=== PATIENT | female | born 1995 | race Two or more races ===

== ENCOUNTER → 2020-03-27 | Outpatient (CLI) | payer SELFPAY ==
[2020-03-30 05:07] LABS: Chlamydia By Nucleic Acid AMP Negative (Negative)
[2020-03-30 07:46] LABS: Gonococcus By Nucleic Acid AMP Negative (Negative)
[2020-03-30 12:07] LABS: Age Gdln ACOG Testing 21-29 (.)
[2020-03-30 15:28] LABS: HPV Reflexed? NOT INDICATED
== END | disposition home or self-care (01) ==
LOC: LABSPEC 16:48
PROVIDERS: Visit Provider Obstetrics & Gynecology
DX: Z11.3 Encounter for screening for infections with a predominantly sexual mode of transmission (principal); Z12.4 Encounter for screening for malignant neoplasm of cervix
CPT/HCPCS: 87491; 87591; 88175; G0145